=== PATIENT | female | born 1935 | race African-American/Black ===

== ENCOUNTER → 2019-01-27 | Outpatient (CLI) | payer MEDICARE, MEDICAID ==
[~2019-01-27] MED LIST: ACET-3161 PO; AUG250 PO; BARIUM SULFATE 450ML ORAL SUSP ONE; FERR-63 PO; HUM10VIA8 SQ; INSU3INS6 SUBCUT; ISOSORBIDE PO; SERT25TA74 PO; SIMV40TA5 PO
== END | disposition home or self-care (01) ==
LOC: CT 08:43
PROVIDERS: ATTEND Internal Medicine Gastroenterology
DX: K57.30 Diverticulosis of large intestine without perforation or abscess without bleeding (principal); K44.9 Diaphragmatic hernia without obstruction or gangrene
CPT/HCPCS: 74176

== ENCOUNTER → 2019-03-23 | Outpatient (CLI) | payer MEDICARE ==
[~2019-03-23] MED LIST changes: -BARIUM SULFATE 450ML ORAL SUSP ONE
[2019-03-23 11:09] LABS: MEAN CORPUSCULAR HEMOGLOBIN 28.3 pg (28.0-32.0); MEAN CORPUSCULAR VOLUME 85.2 fL (81.0-99.0); MEAN PLATELET VOLUME 8.2 fl (7.4-10.4); PLATELET 166 x1000/uL (130-400); RED BLOOD CELL COUNT 4.23 mill/uL (4.2-5.4); RED CELL DISTRIBUTION WIDTH 18.4 % (11.6-14.6)
[2019-03-23 11:17] LABS: CHLORIDE 99 mEq/L (98-107)
[2019-03-23 11:21] LABS: CLARITY URINE CLEAR (CLEAR); COLOR URINE YELLOW (YELLOW); KETONES URINE NEGATIVE (NEGATIVE); LEUKOCYTE ESTERASE URINE 1+ (NEGATIVE); NITRITE URINE NEGATIVE (NEGATIVE); OCCULT BLOOD URINE 2+ (NEGATIVE); PROTEIN URINE NEGATIVE (NEGATIVE); SPECIFIC GRAVITY URINE 1.012 (1.005-1.030)
[2019-03-23 12:14] LABS: PLATELET ESTIMATE NORMAL
== END | disposition home or self-care (01) ==
LOC: LAB 10:33
PROVIDERS: ATTEND Anesthesiology Critical Care Medicine
DX: K57.90 Diverticulosis of intestine, part unspecified, without perforation or abscess without bleeding (principal); E11.9 Type 2 diabetes mellitus without complications
CPT/HCPCS: 36415; 80048; 83036

== ENCOUNTER 2021-02-28 19:29 | Inpatient (IN) | payer OTHER, MEDICAID ==
[~2021-02-28] VITALS: Ht 157.5 cm; Wt 60.8 kg
[~2021-02-28 19:29] MED LIST changes: -ACET-3161 PO; -AUG250 PO; +COR3 MT; -FERR-63 PO; +FURO-151 MT; -HUM10VIA8 SQ; -INSU3INS6 SUBCUT; +IPRA3AMP9 NEB; -ISOSORBIDE PO; -SERT25TA74 PO; +SIMV-46 PO; -SIMV40TA5 PO
[2021-02-28] MEDS ORDERED: SODIUM CHLORIDE 0.9% 1,000 ML IV ONE (20:30)
[2021-02-28] MEDS ORDERED: ONDANSETRON HCL 4MG/2ML INJ IV ONE (20:30)
[2021-02-28] MEDS ORDERED: MORPHINE SULFATE 2 MG/ML CPJ (NOT FOR IM USE) IV ONE (20:30)
[2021-02-28 20:51] LABS: HEMATOCRIT. 30.7 % (36.0-48.0); HEMOGLOBIN. 10.5 g/dL (12.0-16.0); MEAN CORPUSCULAR HEMOGLOBIN 27.7 pg (28.0-32.0); MEAN PLATELET VOLUME 8.1 fl (7.4-10.4); PLATELET 218 x1000/uL (130-400); RED BLOOD CELL COUNT 3.79 mill/uL (4.2-5.4); RED CELL DISTRIBUTION WIDTH 21.3 % (11.6-14.6)
[2021-02-28 20:58] LABS: CHLORIDE 94 mEq/L (98-107)
[2021-02-28 21:02] LABS: PHOSPHORUS 2.7 mg/dL (2.5-4.9)
[2021-02-28 21:13] LABS: INR 1.1; PROTHROMBIN TIME 11.5 sec (9.6-11.0)
[2021-02-28 21:32] LABS: PLATELET ESTIMATE NORMAL
[2021-03-01] MEDS ORDERED: IOHEXOL-300 100 ML BOTTLE ONE (00:22)
[2021-03-01] MEDS ORDERED: MORPHINE SULFATE 2 MG/ML CPJ (NOT FOR IM USE) IV ONE (00:45)
[2021-03-01 05:51] LABS: CLARITY URINE CLEAR (CLEAR); COLOR URINE YELLOW (YELLOW); KETONES URINE NEGATIVE (NEGATIVE); LEUKOCYTE ESTERASE URINE NEGATIVE (NEGATIVE); NITRITE URINE NEGATIVE (NEGATIVE); OCCULT BLOOD URINE NEGATIVE (NEGATIVE); PROTEIN URINE NEGATIVE (NEGATIVE); SPECIFIC GRAVITY URINE 1.031 (1.005-1.030); UROBILINOGEN URINE 0.2 E.U./dL (0.2-1.0)
[2021-03-01 09:00] VITALS: BP 137/77
[2021-03-01] MEDS ORDERED: DIPHENHYDRAMINE 50MG/ML VIAL IV PRN (09:30)
[2021-03-01] MEDS ORDERED: ENOXAPARIN 40MG/0.4ML SYR SUBCUT SCH (09:30)
[2021-03-01] MEDS ORDERED: IPRATROPIUM/ALBUTEROL 0.5-3(2.5)MG/3ML NEB HHN PRN (09:30)
[2021-03-01] MEDS ORDERED: GUAIFENESIN 200MG/10ML SUGAR FREE UDC PO PRN (09:30)
[2021-03-01] MEDS ORDERED: DOCUSATE SODIUM 100MG CAPSULE PO PRN (09:30)
[2021-03-01] MEDS ORDERED: HYDRALAZINE 20MG/ML VIAL IV PRN (09:30)
[2021-03-01] MEDS ORDERED: MAGNESIUM/ALUMINUM HYDROXIDE/SIMETHICONE 30ML UDC PO PRN (09:30)
[2021-03-01] MEDS ORDERED: CLONIDINE 0.1MG TABLET PO PRN (09:30)
[2021-03-01] MEDS ORDERED: LORAZEPAM 2MG/ML CPJ IV PRN (09:30)
[2021-03-01] MEDS: DEXT 5%/0.45% NACL 1000ML 1,000 ML IV SCH (09:45)
[2021-03-01] MEDS: MORPHINE SULFATE 2 MG/ML CPJ (NOT FOR IM USE) IV PRN ×2 (09:46→15:11)
[2021-03-01] MEDS: SODIUM CHLORIDE 0.9% INJ 3ML FLUSH IVF SCH ×2 (09:46→22:11)
[2021-03-01] MEDS: ONDANSETRON HCL 4MG/2ML INJ IV PRN ×2 (09:49→15:10)
[2021-03-01 10:15] VITALS: BP 118/63
[2021-03-01] MEDS ORDERED: IBUP-2029 PO (11:34)
[2021-03-01] MEDS ORDERED: FAMO20TA8 PO (11:34)
[2021-03-01] MEDS ORDERED: LOSA50TA41 PO (11:36)
[2021-03-01] MEDS ORDERED: OMEP40CA12 MT (11:36)
[2021-03-01] MEDS ORDERED: ATOR40TA70 MT (11:40)
[2021-03-01 12:00] VITALS: BP 132/55
[2021-03-01] MEDS ORDERED: IBUP-2029 MT (14:06)
[2021-03-01] MEDS ORDERED: HYDR-4001 PO (14:06)
[2021-03-01] MEDS ORDERED: DEXTROSE 50% WATER 50ML SYRINGE IV PRN (14:30)
[2021-03-01] MEDS ORDERED: IBUPROFEN 600MG TABLET PO PRN (14:30)
[2021-03-01] MEDS: ENOXAPARIN 30MG/0.3ML SYR SUBCUT SCH (15:10)
[2021-03-01 16:00] VITALS: BP 135/71
[2021-03-01] MEDS: BLOOD SUGAR DIAGNOSTIC STRIP TEST SCH ×2 (17:20→21:00)
[2021-03-01] MEDS: INSULIN LISPRO 100 UNITS/ML SUBCUT SCH ×2 (19:10→22:55)
[2021-03-01 20:00] VITALS: BP 152/70
[2021-03-02] VITALS: BP 115/57
[2021-03-02 04:00] VITALS: BP 135/63
[2021-03-02] MEDS: DEXT 5%/0.45% NACL 1000ML 1,000 ML IV SCH ×2 (06:39→21:38)
[2021-03-02] MEDS: SODIUM CHLORIDE 0.9% INJ 3ML FLUSH IVF SCH ×3 (06:40→21:36)
[2021-03-02 06:50] LABS: HEMATOCRIT. 33.7 % (36.0-48.0); MEAN CORPUSCULAR HEMOGLOBIN 26.9 pg (28.0-32.0); MEAN PLATELET VOLUME 8.5 fl (7.4-10.4); PLATELET 222 x1000/uL (130-400); RED BLOOD CELL COUNT 4.11 mill/uL (4.2-5.4); RED CELL DISTRIBUTION WIDTH 21.4 % (11.6-14.6)
[2021-03-02 07:01] LABS: CHLORIDE 95 mEq/L (98-107)
[2021-03-02] MEDS: INSULIN LISPRO 100 UNITS/ML SUBCUT SCH ×4 (07:50→21:38)
[2021-03-02 08:00] VITALS: BP 104/57
[2021-03-02] MEDS: BLOOD SUGAR DIAGNOSTIC STRIP TEST SCH ×4 (08:01→21:16)
[2021-03-02] MEDS: MORPHINE SULFATE 2 MG/ML CPJ (NOT FOR IM USE) IV PRN ×2 (08:22→16:47)
[2021-03-02] MEDS: ONDANSETRON HCL 4MG/2ML INJ IV PRN ×2 (08:29→16:50)
[2021-03-02] MEDS: ENOXAPARIN 30MG/0.3ML SYR SUBCUT SCH (10:35)
[2021-03-02 12:00] VITALS: BP 128/73
[2021-03-02 12:41] LABS: PLATELET ESTIMATE NORMAL
[2021-03-02 16:00] VITALS: BP 108/60
[2021-03-02] MEDS ORDERED: POTASSIUM CHLORIDE 20MEQ TABLET SR PO NR (17:30)
[2021-03-02 20:21] VITALS: BP 97/45
[2021-03-03 00:23] VITALS: BP 129/54
[2021-03-03 04:00] VITALS: BP 138/59
[2021-03-03] MEDS: HYDROCODONE/ACETAMINOPHEN 5/325MG TABLET PO PRN ×2 (04:01→18:22)
[2021-03-03] MEDS: BLOOD SUGAR DIAGNOSTIC STRIP TEST SCH ×4 (06:35→20:51)
[2021-03-03] MEDS: SODIUM CHLORIDE 0.9% INJ 3ML FLUSH IVF SCH ×3 (06:35→22:51)
[2021-03-03 07:50] VITALS: BP 100/50
[2021-03-03] MEDS: ENOXAPARIN 30MG/0.3ML SYR SUBCUT SCH (09:10)
[2021-03-03] MEDS: INSULIN LISPRO 100 UNITS/ML SUBCUT SCH ×4 (09:42→21:33)
[2021-03-03] MEDS: ONDANSETRON HCL 4MG/2ML INJ IV PRN ×2 (09:43→18:20)
[2021-03-03 11:43] VITALS: BP 80/46
[2021-03-03] MEDS: DEXT 5%/0.45% NACL 1000ML 1,000 ML IV SCH (13:20)
[2021-03-03 16:36] VITALS: BP 116/56
[2021-03-03] MEDS: METOCLOPRAMIDE HCL 10MG/2ML VIAL IV SCH ×2 (18:20→23:47)
[2021-03-03 20:00] VITALS: BP 82/36
[2021-03-04] VITALS (8 sets, daily range): BP systolic 89–163; BP diastolic 43–76
[2021-03-04] MEDS: DEXT 5%/0.45% NACL 1000ML 1,000 ML IV SCH ×2 (06:45→18:11)
[2021-03-04] MEDS: SODIUM CHLORIDE 0.9% INJ 3ML FLUSH IVF SCH ×3 (06:45→21:17)
[2021-03-04] MEDS: BLOOD SUGAR DIAGNOSTIC STRIP TEST SCH ×4 (06:47→21:03)
[2021-03-04] MEDS: METOCLOPRAMIDE HCL 10MG/2ML VIAL IV SCH ×3 (06:47→18:10)
[2021-03-04] MEDS: ENOXAPARIN 30MG/0.3ML SYR SUBCUT SCH (08:42)
[2021-03-04] MEDS: INSULIN LISPRO 100 UNITS/ML SUBCUT SCH ×4 (08:43→21:17)
[2021-03-04] MEDS: HYDROCODONE/ACETAMINOPHEN 5/325MG TABLET PO PRN (08:54)
[2021-03-04] MEDS ORDERED: PROCHLORPERAZINE 10MG/2ML VIAL IV PRN (12:45)
[2021-03-04] MEDS ORDERED: SODIUM CHLORIDE 0.9% 500 ML IV ONE (15:00)
[2021-03-04] MEDS ORDERED: MIDODRINE HCL 5MG TABLET PO NR (15:00)
[2021-03-04] MEDS: MIDODRINE HCL 5MG TABLET PO SCH (17:00)
[2021-03-04 17:15] LABS: HEMATOCRIT. 29.5 % (36.0-48.0); HEMOGLOBIN. 9.8 g/dL (12.0-16.0); MEAN CORPUSCULAR HEMOGLOBIN 27.6 pg (28.0-32.0); MEAN CORPUSCULAR VOLUME 83.1 fL (81.0-99.0); MEAN PLATELET VOLUME 8.5 fl (7.4-10.4); PLATELET 163 x1000/uL (130-400); RED BLOOD CELL COUNT 3.55 mill/uL (4.2-5.4); RED CELL DISTRIBUTION WIDTH 21.1 % (11.6-14.6)
[2021-03-04 17:22] LABS: CHLORIDE 98 mEq/L (98-107)
[2021-03-04 17:57] LABS: PLATELET ESTIMATE NORMAL
[2021-03-04] MEDS ORDERED: POTASSIUM CHLORIDE INJ 40 MEQ in DEXT 5% WATER 250 ML IV NR (20:45)
[2021-03-05] MEDS: METOCLOPRAMIDE HCL 10MG/2ML VIAL IV SCH ×4 (00:16→18:13)
[2021-03-05 00:32] VITALS: BP 97/50
[2021-03-05 04:00] VITALS: BP 97/46
[2021-03-05] MEDS: DEXT 5%/0.45% NACL 1000ML 1,000 ML IV SCH ×2 (04:50→15:06)
[2021-03-05] MEDS: MORPHINE SULFATE 2 MG/ML CPJ (NOT FOR IM USE) IV PRN ×2 (04:51→11:37)
[2021-03-05] MEDS: SODIUM CHLORIDE 0.9% INJ 3ML FLUSH IVF SCH ×2 (06:20→12:57)
[2021-03-05] MEDS: BLOOD SUGAR DIAGNOSTIC STRIP TEST SCH ×4 (06:20→21:31)
[2021-03-05 07:53] LABS: HEMATOCRIT. 30.1 % (36.0-48.0); HEMOGLOBIN. 10.3 g/dL (12.0-16.0); MEAN CORPUSCULAR HEMOGLOBIN 28.5 pg (28.0-32.0); MEAN CORPUSCULAR VOLUME 83.4 fL (81.0-99.0); RED BLOOD CELL COUNT 3.61 mill/uL (4.2-5.4); RED CELL DISTRIBUTION WIDTH 20.8 % (11.6-14.6)
[2021-03-05 07:57] LABS: CHLORIDE 98 mEq/L (98-107)
[2021-03-05 08:27] LABS: PLATELET 174 x1000/uL (130-400)
[2021-03-05 08:29] LABS: PLATELET ESTIMATE NORMAL
[2021-03-05 09:15] VITALS: BP 131/59
[2021-03-05] MEDS: INSULIN LISPRO 100 UNITS/ML SUBCUT SCH ×3 (09:32→18:15)
[2021-03-05] MEDS: ENOXAPARIN 30MG/0.3ML SYR SUBCUT SCH (09:33)
[2021-03-05] MEDS: MIDODRINE HCL 5MG TABLET PO SCH ×3 (09:34→18:12)
[2021-03-05] MEDS ORDERED: FAMO-135 MT (14:06)
[2021-03-05] MEDS ORDERED: DOCU-138 MT (14:06)
[2021-03-05] MEDS ORDERED: ONDA4TAB5 MT (14:06)
[2021-03-05] MEDS ORDERED: HYDR-4005 MT (14:06)
[2021-03-05 16:15] VITALS: BP 118/73
[2021-03-05 16:43] VITALS: BP 118/73
[2021-03-05 20:27] VITALS: BP 162/61
== END 2021-03-05 20:35 | disposition home health service (06) | DRG 948 ==
LOC: ER 19:29 → 6EST 03-01 00:35 → ENRESERV 03-01 07:15 → 6WST 03-02 18:25
PROVIDERS: ADMIT Internal Medicine; ATTEND Internal Medicine
DX: G89.3 Neoplasm related pain (acute) (chronic) (principal); E87.1 Hypo-osmolality and hyponatremia; C77.5 Secondary and unspecified malignant neoplasm of intrapelvic lymph nodes; C79.82 Secondary malignant neoplasm of genital organs; C78.5 Secondary malignant neoplasm of large intestine and rectum; C78.6 Secondary malignant neoplasm of retroperitoneum and peritoneum; K44.9 Diaphragmatic hernia without obstruction or gangrene; D25.9 Leiomyoma of uterus, unspecified; D64.9 Anemia, unspecified; E11.65 Type 2 diabetes mellitus with hyperglycemia; E78.5 Hyperlipidemia, unspecified; E86.0 Dehydration; M47.816 Spondylosis without myelopathy or radiculopathy, lumbar region; M48.061 Spinal stenosis, lumbar region without neurogenic claudication; E87.6 Hypokalemia; I10 Essential (primary) hypertension; I25.10 Atherosclerotic heart disease of native coronary artery without angina pectoris; I95.9 Hypotension, unspecified; M51.37 Other intervertebral disc degeneration, lumbosacral region; M51.86 Other intervertebral disc disorders, lumbar region; M43.17 Spondylolisthesis, lumbosacral region; K57.30 Diverticulosis of large intestine without perforation or abscess without bleeding; M51.34 Other intervertebral disc degeneration, thoracic region; M43.16 Spondylolisthesis, lumbar region; M48.02 Spinal stenosis, cervical region; F17.200 Nicotine dependence, unspecified, uncomplicated; Z99.81 Dependence on supplemental oxygen; Z88.6 Allergy status to analgesic agent; Z88.5 Allergy status to narcotic agent; Z79.899 Other long term (current) drug therapy; I25.2 Old myocardial infarction; Z98.61 Coronary angioplasty status; Z90.49 Acquired absence of other specified parts of digestive tract; Z85.3 Personal history of malignant neoplasm of breast; Z86.16 Personal history of COVID-19; Z92.3 Personal history of irradiation; Z87.01 Personal history of pneumonia (recurrent); R11.2 Nausea with vomiting, unspecified; Z87.19 Personal history of other diseases of the digestive system
CPT/HCPCS: 36415; 71250; 72131; 72141; 72148; 74018; 74177; 76856; 80048; 80053; 81003; 82962; 83036; 83605; 83615; 84100; 84484; 84550; 85025; 93005; 97162; 99291; C1893; J0780; J1650; J1815; J2060; J2270; J2405; J2765; J3480; J7030; J7040; J7060; Q9967